=== PATIENT | female | born 1980 ===

== ENCOUNTER 2017-04-03 12:21 | Emergency (ER) | payer SELFPAY ==
[2017-04-03 12:21] VITALS: BMI 27.9
[2017-04-03 12:40] VITALS: BP 115/66; PULSE 71; RESP 18; TEMP 98; O2SAT 100
--- NOTE | 2017-04-03 13:31 | ED PDOC ---
HPI: General Adult Time Seen by Provider: 04/03/17 13:24 Chief Complaint (Nursing): Upper Extremity Problem/Injury Chief Complaint (Provider): neck pain, shoulder pain History Per: Patient Additional Complaint(s): 37-year-old right-hand dominant female presents to emergency department with right-sided neck pain and shoulder pain that radiates down her right arm ongoing for 3 days. Patient denies any injury or trauma. Patient has a at home and is currently . Patient took Motrin the other day which did help the pain. She rates current pain as 6 out of 10. No associated chest pain or shortness of breath. Past Medical History Reviewed: Historical Data, Nursing Documentation, Vital Signs Vital Signs: Last Vital Signs Temp 98 F 04/03/17 12:37 Pulse 71 04/03/17 12:37 Resp 18 04/03/17 12:37 BP 115/66 04/03/17 12:37 Pulse Ox 100 04/03/17 14:32 - Medical History PMH: No Chronic Diseases - Surgical History Surgical History: (x 3) - Family History Family History: States: No Known Family Hx - Living Arrangements Living Arrangements: With Family - Social History Current smoker - smoking cessation education provided: No Alcohol: None Drugs: Denies - Immunization History Hx Tetanus Toxoid Vaccination: Yes - Home Medications Home Medications: Ambulatory Orders Medication Instructions Recorded Vit No.126/Iron/Folic 1 tab PO DAILY 10/21/15 [Classic Tablet] Ibuprofen [Motrin] 600 mg PO Q6 PRN #15 tab 04/03/17 - Allergies Allergies/Adverse Reactions: Allergies Allergy/AdvReac Type Severity Reaction Status Date / Time No Known Allergies Allergy Verified 10/21/15 16:45 Review of Systems ROS Statement: Except As Marked, All Systems Reviewed And Found Negative Constitutional: Negative for: Fever Cardiovascular: Negative for: Chest Pain Respiratory: Negative for: Shortness of Breath Musculoskeletal: Positive for: Other (Neck pain, right arm pain 3 days, no trauma) Physical Exam - Reviewed Nursing Documentation Reviewed: Yes Vital Signs Reviewed: Yes - Physical Exam Appears: Positive for: Well, Non-toxic, No Acute Distress Skin: Negative for: Rash Eye Exam: Positive for: Normal appearance Neck: Positive for: Pain On Movement Of Neck (Tenderness to right paraspinal region of cervical spine extending to right trapezius muscle, mild tenderness along midline with no step-off) Cardiovascular/Chest: Positive for: Regular Rate, Rhythm Respiratory: Positive for: Normal Breath Sounds Extremity: Positive for: Other (Diffuse tenderness anterior right shoulder with full range of motion, 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 Patient feels better after medications are administered. Motrin prescription provided. Patient was advised to rest the affected area and was referred to orthopedist on-call for follow-up. Disposition - Clinical Impression Clinical Impression: Neck sprain, Shoulder strain - Patient ED Disposition Is Patient to be Admitted: No Counseled Patient/Family Regarding: Studies Performed, Diagnosis, Need For Followup, Rx Given - Disposition Referrals: Maryellen Retana MD [Staff Provider] - Disposition: Routine/Home Disposition Time: 14:56 Condition: STABLE Additional Instructions: Rest affected area as much as possible. Take prescription as directed as needed for pain. Follow-up with primary doctor or orthopedist for any persistent symptoms. Prescriptions: Ibuprofen [Motrin] 600 mg PO Q6 PRN #15 tab PRN Reason: Pain, Moderate (4-7) Instructions: Cervical Strain (DC), Shoulder Sprain (ED) Forms: [facility] (Chadian)
--- NOTE | 2017-04-03 14:51 | RAD ---
PROCEDURE: Radiographs of the Right Shoulder HISTORY: pain COMPARISON: No prior. FINDINGS: BONES: No acute fracture. JOINTS: Glenohumeral and acromioclavicular joints preserved. No osteoarthritis. SOFT TISSUES: Normal. OTHER FINDINGS: None. IMPRESSION: Normal radiographs of the right shoulder.
--- NOTE | 2017-04-03 14:52 | RAD ---
PROCEDURE: Cervical Spine Radiographs. HISTORY: Pain. COMPARISON: None. FINDINGS: BONES: Alignment maintained. No fracture. Dens Intact. DISC SPACES: Normal. SOFT TISSUES: Normal. No prevertebral soft tissue swelling. OTHER FINDINGS: None. IMPRESSION: Normal cervical spine radiographs
== END 2017-04-03 15:13 | disposition home or self-care (01) ==
LOC: H.ER 12:21
DX: S13.9XXA Sprain of joints and ligaments of unspecified parts of neck, initial encounter (principal); S46.911A Strain of unspecified muscle, fascia and tendon at shoulder and upper arm level, right arm, initial encounter; Y92.89 Other specified places as the place of occurrence of the external cause

== ENCOUNTER 2017-08-23 21:35 | Emergency (ER) | payer SELFPAY ==
[2017-08-23 21:35] VITALS: BMI 27.9
[2017-08-23 21:48] VITALS: RESP 14; TEMP 98.3; O2SAT 99
[2017-08-23 23:06] LABS: BASO # 0.1 K/uL (0.0-0.2); BASO % 0.8 % (0.0-2.0); EOS # 0.2 K/uL (0.0-0.7); EOS % 2.3 % (0.0-4.0); LYMPH # 2.4 K/uL (1.0-4.3); LYMPH % 34.4 % (20.0-40.0); MEAN CELL VOLUME 89.3 fl (81.0-99.0); MEAN CORPUSCULAR HEMOGLOBIN 29.7 pg (27.0-31.0); MEAN CORPUSCULAR HGB CONC 33.2 g/dL (33.0-37.0); MEAN PLATELET VOLUME 9.2 fl (7.2-11.7); MONO # 0.6 K/uL (0.0-0.8); MONO % 9.2 % (0.0-10.0); NEUT # 3.7 K/uL (1.8-7.0); NEUT % 53.3 % (50.0-75.0); RBC 4.38 Mil/uL (3.80-5.20); RED CELL DISTRIBUTION WIDTH 13.5 % (11.5-14.5)
[2017-08-23 23:14] LABS: ALB/GLOB RATIO 1.2 (1.0-2.1); ALBUMIN 3.8 g/dL (3.5-5.0); ALT/SGPT 22 U/L (9-52); AST/SGOT 22 U/L (14-36); BLOOD UREA NITROGEN 13 mg/dl (7-17); CALCIUM 8.7 mg/dL (8.4-10.2); GFR AFRICAN-AMERICAN > 60; GFR NON-AFRICAN AMERICAN > 60
[2017-08-23] MEDS ORDERED: Iohexol 300 100 ML IJ ONE (23:46)
[2017-08-23] MEDS ORDERED: Sodium Chloride 0.9% 50 ML IV ONE (23:46)
--- NOTE | 2017-08-24 00:06 | ED PDOC ---
HPI: Abdomen Time Seen by Provider: 08/23/17 21:53 Chief Complaint (Nursing): Abdominal Pain Chief Complaint (Provider): LLQ pain History Per: Patient History/Exam Limitations: no limitations Onset/Duration Of Symptoms: Days (x4) Current Symptoms Are (Timing): Still Present Additional Complaint(s): 37 year old female presents to the emergency department complaining of constant , non radiating left lower quadrant pain worsening since its onset four days ago. She states it feels worse when she walks, but has not taken any pain medications. Patient denies nausea, vomiting, diarrhea, constipation, urinary symptoms, vaginal bleeding / discharge, fever, chills, and appetite changes. PMD: Linda Nice Past Medical History Reviewed: Historical Data, Nursing Documentation, Vital Signs Vital Signs: Last Vital Signs Temp 98.3 F 08/23/17 21:45 Pulse 73 08/24/17 05:39 Resp 14 08/23/17 21:45 BP 100/58 L 08/24/17 05:39 Pulse Ox 99 08/24/17 05:33 - Medical History PMH: No Chronic Diseases - Surgical History Surgical History: (x 3) - Family History Family History: States: No Known Family Hx - Social History Current smoker - smoking cessation education provided: No Alcohol: None Drugs: Denies - Immunization History Hx Tetanus Toxoid Vaccination: Yes - Home Medications Home Medications: Ambulatory Orders Medication Instructions Recorded Vit No.126/Iron/Folic 1 tab PO DAILY 10/21/15 [Classic Tablet] Ibuprofen [Motrin] 600 mg PO Q6 PRN #15 tab 04/03/17 - Allergies Allergies/Adverse Reactions: Allergies Allergy/AdvReac Type Severity Reaction Status Date / Time No Known Allergies Allergy Verified 10/21/15 16:45 Review of Systems ROS Statement: Except As Marked, All Systems Reviewed And Found Negative Constitutional: Negative for: Fever, Chills Gastrointestinal: Positive for: Abdominal Pain (LLQ, constant, non radiating, worsening since onset). Negative for: Nausea, Vomiting, Diarrhea, Constipation , Other (appetite changes) Genitourinary Female: Negative for: Dysuria, Frequency, Incontinence, Vaginal Discharge, Vaginal Bleeding Physical Exam - Reviewed Nursing Documentation Reviewed: Yes Vital Signs Reviewed: Yes - Physical Exam Appears: Positive for: Non-toxic, In Acute Distress (mild painful) Head Exam: Positive for: ATRAUMATIC, NORMOCEPHALIC Skin: Positive for: Warm, Dry Eye Exam: Positive for: EOMI, PERRL ENT: Negative for: Pharyngeal Erythema, Tonsillar Exudate Neck: Positive for: Painless ROM, Supple Cardiovascular/Chest: Positive for: Regular Rate, Rhythm, Chest Non Tender. Negative for: Murmur Respiratory: Positive for: Normal Breath Sounds. Negative for: Respiratory Distress Gastrointestinal/Abdominal: Positive for: Tenderness (LLQ to palpation at level of umbilicus). Negative for: Mass, Guarding, Rebound, Other (mcburney's point tenderness, krishna's sign) Back: Positive for: Normal Inspection. Negative for: L CVA Tenderness, R CVA Tenderness, Decreased ROM Extremity: Positive for: Normal ROM. Negative for: Deformity Lymphatic: Negative for: Adenopathy Neurologic/Psych: Positive for: Alert. Negative for: Motor/Sensory Deficits - Laboratory Results Result Diagrams: 08/23/17 22:59 08/23/17 22:59 - ECG O2 Sat by Pulse Oximetry: 99 (RA) Pulse Ox Interpretation: Normal Medical Decision Making Medical Decision Making: Initial Impression: left lower quadrant pain Ddx includes but is not limited to: colitis, diverticulitis, enteritis, ovarian cyst Time: 22:27 Initial Plan: --CT Abd / Pelvis IV Contrast --CMP --Urine --Urine dipstick --CBC with differential Scribe Attestation: Documented by Isabel Covarrubias, acting as a scribe for Michelle Acosta MD. Provider Scribe Attestation: All medical entries made by the Scribe were at my direction and personally dictated by me. I have reviewed the chart and agree that the record accurately reflects my personal performance of the history, physical exam, medical decision making, and the department course for this patient. I have also personally directed, reviewed, and agree with the discharge instructions and disposition. Disposition - Clinical Impression Clinical Impression: Abdominal pain - Disposition Disposition: Transfer of Care Disposition Time: 00:00 Condition: STABLE Print Language: DJIBOUTIAN Patient Signed Over To: Amei Thrasher Y Handoff Comments: Pending ER workup, reassessment and final ER disposition
--- NOTE | 2017-08-24 00:44 | ED PDOC ---
- Laboratory Results Result Diagrams: 08/23/17 22:59 08/23/17 22:59 - ECG O2 Sat by Pulse Oximetry: 99 (RA) Medical Decision Making Medical Decision Makin:00 Patient care endorsed from Dr. Acosta to Dr. Thrasher pending CT results. 00:32 CT Abd Pelvis with IV contrast FINDINGS: LUNG BASES: No significant abnormality seen. ABDOMEN: LIVER: No acute abnormality of the liver identified. GALLBLADDER AND BILE DUCTS: Common bile duct appears mildly dilated, measuring 8 mm in diameter proximally. No common bile duct stones are visualized. The distal common bile duct appears nondilated. No CT evidence of acute cholecystitis. No radioopaque gallstones are seen. PANCREAS: No CT evidence of acute pancreatitis. SPLEEN: No acute abnormality of the spleen identified. ADRENALS: No acute abnormality of the adrenal glands identified. KIDNEYS AND URETERS: No acute abnormality of the kidneys identified. No evidence of significant hydrouereteronephrosis. STOMACH AND BOWEL: No acute abnormality of the stomach, small bowel or colon identified. No evidence of bowel obstruction. PELVIS: APPENDIX: Appendix is seen, and is within normal limits in appearance. BLADDER: No acute abnormality of the bladder identified. REPRODUCTIVE: Left ovarian/adnexal cystic lesion. This measures 5 x 4 x 4.5 cm maximally, and has a density of 20-25 Hounsfield units, mildly higher than expected for a simple cyst. Followup pelvic ultrasound is recommended for better characterization of this lesion, not necessarily on an emergent basis. Uterus is retroverted in position. No evidence of large left adnexal masses. ABDOMEN and PELVIS: INTRAPERITONEAL SPACE: Tiny amount of free fluid in the cul-de-sac. This is most likely physiologic in nature. BONES/JOINTS: No acute fractures or other acute bony abnormality noted. SOFT TISSUES: Small umbilical hernia, containing only fat. VASCULATURE: No evidence of abdominal aortic aneurysm. No evidence of periaortic hemorrhage. LYMPH NODES: No evidence of diffuse lymphadenopathy. IMPRESSION: - No evidence of bowel obstruction or significant acute inflammatory process. - 5 x 4.5 cm left ovarian/adnexal cystic lesion, for which followup ultrasound is recommended. See above. - Mild dilatation of the proximal common bile duct, of uncertain clinical significance. Recommend correlation with LFTs for laboratory evidence of biliary obstruction, and further workup as indicated, such as with right upper quadrant ultrasound. - See above for remaining findings 02:03 Transvag US ordered to r/o torsion. 05:09 Transvag US FINDINGS: Uterus/cervix: The uterus is retroverted. The uterus measures 8.3 x 4.0 x 5.7 CM. Endometrium measures 4.3 mm. No myometrial mass. Right ovary: The right ovary measures 2.4 x 1.5 x 1.4 CM demonstrating small follicular changes. Normal blood flow. Left ovary: The left ovary measures 6.8 x 4.6 x 4.9 CM demonstrating a large simple appearing cyst, which measures 4.3 x 5.6 x 3.7 CM. Normal blood flow. Free fluid: No free fluid. IMPRESSION: Left ovarian large simple appearing cyst, which measures 4.3 x 5.6 x 3.7 CM, ACR White Paper guidelines (Jesusita, et. al. Radiology 2010; 256(3):943-954) suggest that this cyst is almost certainly benign. Yearly pelvic ultrasound follow-up recommended. 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 Scribe Attestation: Documented by Isabel Covarrubias, acting as a scribe for Amie Thrasher MD. Provider Scribe Attestation: All medical entries made by the Scribe were at my direction and personally dictated by me. I have reviewed the chart and agree that the record accurately reflects my personal performance of the history, physical exam, medical decision making, and the department course for this patient. I have also personally directed, reviewed, and agree with the discharge instructions and disposition. Disposition Counseled Patient/Family Regarding: Studies Performed, Diagnosis, Need For Followup - Clinical Impression Clinical Impression: Abdominal pain - POA Present On Arrival: None - Disposition Disposition: Routine/Home Disposition Time: 05:30 Condition: STABLE Print Language: KAZAKH
[2017-08-24 05:40] VITALS: BP 100/58; PULSE 73
--- NOTE | 2017-08-24 11:13 | CT ---
PROCEDURE: CT Abdomen and Pelvis with contrast HISTORY: LLQ pain COMPARISON: None. TECHNIQUE: CT scan of the abdomen and pelvis was performed after administration of intravenous contrast. Oral contrast was not administered. Coronal and sagittal reformatted images were obtained. Contrast dose: 90 mL Omnipaque 300 Radiation dose: Total exam DLP = 283.65 mGy-cm. This CT exam was performed using one or more of the following dose reduction techniques: Automated exposure control, adjustment of the mA and/or kV according to patient size, and/or use of iterative reconstruction technique. FINDINGS: LOWER THORAX: The visualized lungs are clear. LIVER: Mild hepatomegaly and diffuse fatty infiltration in the. No gross lesion or ductal dilatation. GALLBLADDER AND BILE DUCTS: The gallbladder is contracted. There is mild dilatation of the proximal common bile duct. The distal common bile duct is normal in caliber. PANCREAS: Normal in size with homogeneous enhancement. No gross lesion or ductal dilatation. SPLEEN: Normal in size and appearance. ADRENALS: No discrete nodule. KIDNEYS AND URETERS: Normal in size with homogeneous enhancement. No hydronephrosis. No solid mass. VASCULATURE: No aortic aneurysm. BOWEL: Small bowel loops are normal in caliber. The colon is unremarkable. No obstruction. No gross mural thickening. APPENDIX: Normal appendix. PERITONEUM: No free fluid. No free air. LYMPH NODES: No enlarged lymph nodes. BLADDER: Grossly normal in appearance. REPRODUCTIVE: The uterus is normal in size. There is a 6.6 x 4.4 cm low-attenuation mass in the left adnexa. BONES: No acute fracture. Within normal limits for the patient's age with OTHER FINDINGS: None. IMPRESSION: 6.6 x 4.4 cm cystic mass in the left adnexa, the differential considerations include complicated cyst, cystadenoma and cystadenocarcinoma. Clinical and ultrasound follow-up is recommended. Mild dilatation of the proximal common bile duct without CT evidence for choledocholithiasis. Please correlate with right upper quadrant ultrasound and liver function tests. A preliminary report was provided by [facility].
--- NOTE | 2017-08-24 12:24 | US ---
HISTORY: Abdominal pain, left adnexal pain assess for torsion. LMP August 12, 2017. Regular cycles. COMPARISON: August 23, 2017. CT abdomen and pelvis. Summary of findings on the comparison examination: 4.4 x 6.6 cm cystic mass left adnexa. TECHNIQUE: Transvaginal only. Real -time technique with 2D, duplex and color Doppler FINDINGS: UTERUS: Measures cm. Normal in size and appearance. No fibroid or other mass lesion seen. ENDOMETRIUM: Measures mm in diameter. Unremarkable. CERVIX: No cervical abnormality identified. RIGHT OVARY: Measures 1.5 x 1.4 x 2.4 cm. No solid mass. Normal flow. Multiple subcentimeter follicles. LEFT OVARY: Measures 4.6 x 4.9 x 6.8 cm. No solid mass. Normal flow. Confirmation of simple cyst left adnexa 4.3 x 6.8 x 4.6 cm. Additional subcentimeter follicles identified. FREE FLUID: No significant free fluid noted. OTHER FINDINGS: None. IMPRESSION: Simple cyst left adnexa. Additional benign and/or incidental findings described above. Concordant results (preliminary interpretation) provided by [facility]. Procedure Completed: 03:26 Preliminary ([facility]) Report: Dictated and Authenticated: 05:09 Final Interpretation: 12:22 August 24, 2017.
== END 2017-08-24 05:40 | disposition home or self-care (01) ==
LOC: H.ER 21:35
DX: N83.291 Other ovarian cyst, right side (principal); R10.32 Left lower quadrant pain
CPT/HCPCS: 74177; 76830; 80053; 81025; 85025; 99284; Q9967

== ENCOUNTER 2018-03-12 15:50 | Emergency (ER) | payer SELFPAY ==
[2018-03-12 15:50] VITALS: BMI 27.9
[2018-03-12 16:00] VITALS: BP 109/69; PULSE 90; RESP 18; TEMP 97.5; O2SAT 98
--- NOTE | 2018-03-12 17:06 | ED PDOC ---
Upper Extremity Pain/Injury Time Seen by Provider: 03/12/18 16:28 Chief Complaint (Nursing): Upper Extremity Problem/Injury Chief Complaint (Provider): Right wrist pain History Per: Patient History/Exam Limitations: no limitations Onset/Duration Of Symptoms: Days (03/05/18) Current Symptoms Are (Timing): Still Present Quality: "Pain" Additional Complaint(s): 38 year old female presents to the ED for an evaluation of wrist pain onset 03/05/18. Patient states she was at work and moving boxes when boxes fell, she tried to stretch out her hand to keep them from falling. Some boxes fell to the side of her right arm. Patient was seen at [place] and discharged home with Flexeril and Motrin without any x-ray. She also reports of additional pain to the right side of her neck and back. Otherwise she denies fever, chills, numbness or tingling. PMD: unknown provider Past Medical History Reviewed: Historical Data, Nursing Documentation, Vital Signs Vital Signs: Last Vital Signs Temp 97.5 F L 03/12/18 15:56 Pulse 90 03/12/18 15:56 Resp 18 03/12/18 15:56 BP 109/69 03/12/18 15:56 Pulse Ox 98 03/12/18 15:56 - Medical History PMH: No Chronic Diseases - Surgical History Surgical History: (x 3) - Family History Family History: States: Unknown Family Hx - Immunization History Hx Tetanus Toxoid Vaccination: Yes - Home Medications Home Medications: Ambulatory Orders Medication Instructions Recorded Vit No.126/Iron/Folic 1 tab PO DAILY 10/21/15 [Classic Tablet] Ibuprofen [Motrin] 600 mg PO Q6 PRN #15 tab 04/03/17 Naproxen 375 mg PO Q8 PRN #21 tablet 03/12/18 diaZEpam [Valium] 5 mg PO Q8 PRN #5 tab 03/12/18 - Allergies Allergies/Adverse Reactions: Allergies Allergy/AdvReac Type Severity Reaction Status Date / Time No Known Allergies Allergy Verified 03/12/18 16:25 Review of Systems ROS Statement: Except As Marked, All Systems Reviewed And Found Negative Constitutional: Negative for: Fever, Chills Musculoskeletal: Positive for: Neck Pain, Back Pain, Other (right wrist pain) Neurological: Negative for: Weakness, Numbness Physical Exam - Reviewed Nursing Documentation Reviewed: Yes Vital Signs Reviewed: Yes - Physical Exam Appears: Positive for: Non-toxic, No Acute Distress Head Exam: Positive for: ATRAUMATIC, NORMAL INSPECTION, NORMOCEPHALIC Skin: Positive for: Normal Color, Warm, Dry. Negative for: Rash Eye Exam: Positive for: Normal appearance Neck: Negative for: Normal (rigth neck pain) Back: Negative for: Normal Inspection (right paralumbar tenderness) Extremity: Positive for: Tenderness (right wrist). Negative for: Deformity, Sw elling Neurologic/Psych: Positive for: Alert, Oriented (x3). Negative for: Motor/Sensory Deficits - ECG O2 Sat by Pulse Oximetry: 98 (RA) Pulse Ox Interpretation: Normal - Radiology X-Ray: Interpreted by Me, Viewed By Me X-Ray Interpretation: No Acute Disease Medical Decision Making Medical Decision Making: Time: 1631 Initial impression: right wrist pain Initial plan: Toradol 30mg Valium 5mg Wrist, Right 3 Views [rad] Reevaluation ------- Scribe Attestation: Documented by Kofi Finley, acting as a scribe for Dwayne Vaughn PA-C. Provider Scribe Attestation: All medical record entries made by the Scribe were at my direction and personally dictated by me. I have reviewed the chart and agree that the record accurately reflects my personal performance of the history, physical exam, medical decision making, and the department course for this patient. I have also personally directed, reviewed, and agree with the discharge instructions and disposition. Disposition - Clinical Impression Clinical Impression: Acute strain of neck muscle, Low back strain - Patient ED Disposition Is Patient to be Admitted: No - Disposition Disposition: Routine/Home Disposition Time: 16:50 Condition: FAIR Prescriptions: diaZEpam [Valium] 5 mg PO Q8 PRN #5 tab PRN Reason: Muscle Spasm Naproxen 375 mg PO Q8 PRN #21 tablet PRN Reason: Pain, Moderate (4-7) Instructions: Muscle Strain
--- NOTE | 2018-03-12 17:45 | RAD ---
Date of service: 03/12/2018 PROCEDURE: Right Wrist Radiographs. HISTORY: WRIST PAIN COMPARISON: None. FINDINGS: BONES: No definitive evidence of acute displaced fracture nor dislocation. The osseous structures appear intact. JOINTS: Joint spaces preserved.. No dislocation. SOFT TISSUES: Normal. OTHER FINDINGS: None. IMPRESSION: No evidence of acute displaced fracture nor dislocation. If symptoms persist or occult fracture suspected clinically consider follow-up MRI if necessary.
== END 2018-03-12 19:38 | disposition home or self-care (01) ==
LOC: H.ER 15:50
DX: S39.012A Strain of muscle, fascia and tendon of lower back, initial encounter (principal); S16.1XXA Strain of muscle, fascia and tendon at neck level, initial encounter; W20.8XXA Other cause of strike by thrown, projected or falling object, initial encounter; Y99.0 Civilian activity done for income or pay
CPT/HCPCS: 73110; 96372; 99283; J1885

== ENCOUNTER 2018-08-08 10:28 | Observation (INO) | payer MEDICAID, SELFPAY ==
[2018-08-08 10:30] VITALS: BMI 25.1
--- NOTE | 2018-08-08 11:42 | CARD ---
APPROVED REPORT Date of service: 08/08/2018 EKG Measurement Heart [id number] <Conclusion> Normal sinus rhythm Normal ECG
--- NOTE | 2018-08-08 12:29 | CT ---
Date of service: 08/08/2018 PROCEDURE: CT HEAD WITHOUT CONTRAST. HISTORY: trauma COMPARISON: None available. TECHNIQUE: Axial computed tomography images were obtained through the head/brain without intravenous contrast. Radiation dose: Total exam DLP = 771.86 mGy-cm. This CT exam was performed using one or more of the following dose reduction techniques: Automated exposure control, adjustment of the mA and/or kV according to patient size, and/or use of iterative reconstruction technique. FINDINGS: HEMORRHAGE: No intracranial hemorrhage. BRAIN: No mass effect or edema. No atrophy or chronic microvascular ischemic changes. VENTRICLES: Unremarkable. No hydrocephalus. CALVARIUM: Unremarkable. PARANASAL SINUSES: Left maxillary sinus coastal thickening-concomitant underlying retention cyst and/or polyp here suspect. MASTOID AIR CELLS: Unremarkable as visualized. No inflammatory changes. OTHER FINDINGS: None. IMPRESSION: No intracranial hemorrhage or mass effect. Left maxillary sinus inflammatory changes as detailed above.
[2018-08-08 12:47] LABS: SQUAMOUS EPITHIAL 4 /hpf (0-5); URINE AMORPHOUS SEDIMENT MODERATE /ul (<OCC); URINE BACTERIA RARE (<OCC); URINE BILIRUBIN NEGATIVE (NEGATIVE); URINE BLOOD NEGATIVE (NEGATIVE); URINE CLARITY CLOUDY (Clear); URINE COLOR YELLOW (YELLOW); URINE GLUCOSE (UA) NEG (NEGATIVE); URINE LEUKOCYTE ESTERASE NEG Leu/uL (Negative); URINE PROTEIN NEGATIVE (NEGATIVE); URINE UROBILINOGEN 0.2-1.0 mg/dL (0.2-1.0)
[2018-08-08 12:54] LABS: BASO % 0.3 % (0.0-2.0); EOS # 0.2 K/uL (0.0-0.7); EOS % 2.4 % (0.0-4.0); LYMPH # 1.2 K/uL (1.0-4.3); LYMPH % 15.9 % (20.0-40.0); MEAN CELL VOLUME 90.2 fl (81.0-99.0); MEAN CORPUSCULAR HEMOGLOBIN 30.1 pg (27.0-31.0); MEAN CORPUSCULAR HGB CONC 33.3 g/dL (33.0-37.0); MEAN PLATELET VOLUME 8.7 fl (7.2-11.7); MONO # 0.4 K/uL (0.0-0.8); MONO % 5.3 % (0.0-10.0); NEUT # 5.5 K/uL (1.8-7.0); NEUT % 76.1 % (50.0-75.0); RBC 4.67 Mil/uL (3.80-5.20); RED CELL DISTRIBUTION WIDTH 13.6 % (11.5-14.5); WHITE BLOOD COUNT 7.3 K/uL (4.8-10.8)
--- NOTE | 2018-08-08 13:00 | ED PDOC ---
Syncope/Near Syncope/Dizziness Time Seen by Provider: 08/08/18 10:33 Chief Complaint (Nursing): Dizziness/Lightheaded History Per: Patient Additional Complaint(s): Pt. states she was running to the train station and as she was paying for her ticket she began to feel weak then fainted. Pt. states she was woken up by bystanders. Pt. states she woke up with an occipital headache. Further reports she had similar incident 20 years ago in [place] but did not seek medical a ttention until today. Denies N/V, chest pain, SOB, palpitations, anticoagulant use. Past Medical History Reviewed: Historical Data, Nursing Documentation, Vital Signs Vital Signs: Last Vital Signs Temp 98.2 F 08/08/18 10:30 Pulse 85 08/08/18 10:30 Resp 18 08/08/18 10:30 BP 114/70 08/08/18 10:30 Pulse Ox 98 08/08/18 10:31 Primary Care Provider: FAMILY PROVIDER,NO - Surgical History Surgical History: (x 3) - Family History Family History: States: No Known Family Hx - Immunization History Hx Tetanus Toxoid Vaccination: Yes - Home Medications Home Medications: Ambulatory Orders Medication Instructions Recorded Vit No.126/Iron/Folic 1 tab PO DAILY 10/21/15 [Classic Tablet] Ibuprofen [Motrin Tab] 600 mg PO Q6 PRN #15 tab 04/03/17 diaZEpam [Valium] 5 mg PO Q8 PRN #5 tab 03/12/18 - Allergies Allergies/Adverse Reactions: Allergies Allergy/AdvReac Type Severity Reaction Status Date / Time No Known Allergies Allergy Verified 08/08/18 10:37 Review of Systems ROS Statement: Except As Marked, All Systems Reviewed And Found Negative Neurological: Positive for: Altered Mental Status, Headache Physical Exam - Physical Exam Appears: Positive for: Well, Non-toxic, No Acute Distress Head Exam: Positive for: NORMAL INSPECTION, NORMOCEPHALIC Skin: Positive for: Normal Color, Warm. Negative for: Rash Eye Exam: Positive for: EOMI, Normal appearance, PERRL ENT: Positive for: Normal ENT Inspection, TM Is/Are (no hemotympanum b/l) Neck: Positive for: Normal, Painless ROM, Supple Cardiovascular/Chest: Positive for: Regular Rate, Rhythm, Chest Non Tender Respiratory: Positive for: Normal Breath Sounds. Negative for: Respiratory Distress Gastrointestinal/Abdominal: Positive for: Normal Exam, Soft. Negative for: Tenderness Back: Negative for: L CVA Tenderness, R CVA Tenderness, Vertebral Tenderness (no c-spine tenderness) Neurological/Psych: Positive for: Awake, Alert, Symmetric/Intact Strength, Oriented (x3) - Laboratory Results Result Diagrams: 08/08/18 12:47 08/08/18 12:47 - ECG ECG: Positive for: Interpreted By Me ECG Rhythm: Positive for: Sinus Rhythm. Negative for: ST/T Changes O2 Sat by Pulse Oximetry: 98 - Progress ED Course And Treament: Labs, CT head, CT cervical spine w/o contrast ordered. Case d/w Dr. Cárdenas who recommends tele observation. Case d/w Dr. Carmichael and arrangements for 23 hour tele obs. Disposition - Clinical Impression Clinical Impression: Syncope and collapse - Patient ED Disposition Is Patient to be Admitted: Yes - Disposition Disposition Time: 13:30 Condition: FAIR
--- NOTE | 2018-08-08 13:01 | RAD ---
AP date of service: 08/08/2018 HISTORY: clearance COMPARISON: Comparison made with chest 02/28/15 TECHNIQUE: 1 view obtained. FINDINGS: LUNGS: No active pulmonary disease. PLEURA: No significant pleural effusion identified, no pneumothorax apparent. CARDIOVASCULAR: No aortic atherosclerotic calcification present. Normal cardiac size. No pulmonary vascular congestion. OSSEOUS STRUCTURES: No significant abnormalities. VISUALIZED UPPER ABDOMEN: Normal. OTHER FINDINGS: None. IMPRESSION: No active disease.
--- NOTE | 2018-08-08 13:12 | CT ---
Date of service: 08/08/2018 PROCEDURE: CT Cervical Spine without contrast HISTORY: Trauma COMPARISON: No prior study available comparison. TECHNIQUE: Axial computed tomography images were obtained of the cervical spine without the use of intravenous contrast. Coronal and sagittal reformatted images were created and reviewed. Radiation dose: Total exam DLP = 211.03 mGy-cm. This CT exam was performed using one or more of the following dose reduction techniques: Automated exposure control, adjustment of the mA and/or kV according to patient size, and/or use of iterative reconstruction technique. FINDINGS: VERTEBRAE: No evidence of acute compression fractures nor retropulsed fragments. Vertebral bodies exhibit normal stature. Vertebral bodies and facets normally aligned. Discs/spinal canal/neural foramina Disc space heights are relatively maintained.. There is a small central and bilateral disc focal disc protrusion at the C4-C5 level which compresses the ventral surface of the thecal sac and may minimally indent the ventral surface of the spinal cord. The canal is minimally narrowed. Exit foramina adequate. No disc herniation or significant disc bulges seen at the remaining levels. Overall central bony canal and exit foramina appear adequate. PARASPINAL SOFT TISSUES: Paraspinal soft tissues unremarkable. OTHER FINDINGS: Small elliptical shaped septated collection of gas within the soft tissues anteromedial right lung apex. This probably represents atypical bleb formation. Note that the collection also abuts the right lateral wall of the esophagus however the esophagus appears intact.. The collection also abuts the posterior aspect right lobe of the thyroid gland. Endoscopy followup could be performed if clinically indicated. IMPRESSION: No acute fractures. Small elliptical shaped septated collection of gas within the soft tissues anteromedial right lung apex. This probably represents atypical bleb formation. Note that the collection also abuts the right lateral wall of the esophagus however the esophagus appears intact.. The collection also abuts the posterior right lobe of the thyroid gland. Endoscopy followup could be performed if clinically indicated given this patient's history of trauma.
[2018-08-08 13:13] LABS: ALB/GLOB RATIO 1.4 (1.0-2.1); ALBUMIN 4.3 g/dL (3.5-5.0); ALT/SGPT 16 U/L (9-52); AST/SGOT 23 U/L (14-36); BLOOD UREA NITROGEN 12 mg/dl (7-17); CALCIUM 9.1 mg/dL (8.4-10.2); GFR NON-AFRICAN AMERICAN > 60
--- NOTE | 2018-08-08 16:32 | CP.PCM.HP ---
<Koffi Hayes - Last Filed: 08/08/18 17:03> History of Present Illness - History of Present Illness History of Present Illness: 38 yo female with no pmh was brought to ER due to having episode of syncope while she was running to catch the train. Patient report that she ran 5 blocks and when she got to train station she start feeling dizzy, cold sweat, and then everything went black. Patient woke up while a person was holding her legs up, patient cant tell how much she was blacked out, or if she hit her hear, but does state that she woke up with a headache. Patient report having same episode when she was 16 year old, and few years ago. Otherwise patient have no complains. She denies any chest pain, sob, abd pain, diarrhea, constipation, dysuria or polyuria. Patient have no other complains. Patient report feeling good and want to go home. Allergy None PCP: Micha med: oral contraception PMH: None PSH None PFH: denies any heart, diabete condition Social Denies smoke, drink or drug use. Ed Course Vitals: 98 tmp, pulse 65, bp 104/69, Ox 99, RR 18 CBC CMP UA WNL EKG : NSR No acute fractures. X-ray negative for acute changes CT CHEST Small elliptical shaped septated collection of gas within the soft tissues anteromedial right lung apex. This probably represents atypical bleb formation. Note that the collection also abuts the right lateral wall of the esophagus however the esophagus appears intact.. The collection also abuts the posterior right lobe of the thyroid gland. Endoscopy followup could be performed if clinically indicated given this patient's history of trauma. No intracranial hemorrhage or mass effect. Left maxillary sinus inflammatory changes as detailed above. IMPRESSION: No intracranial hemorrhage or mass effect. Left maxillary sinus inflammatory changes as detailed above. Present on Admission - Present on Admission Any Indicators Present on Admission: No Review of Systems - Review of Systems All systems: reviewed and no additional remarkable complaints except Past Patient History - Past Social History Smoking Status: Never Smoked - PSYCHIATRIC Hx Substance Use: No - SURGICAL HISTORY Hx Surgeries: Yes Hx Section: Yes (x2) - ANESTHESIA Hx Anesthesia: Yes Hx Anesthesia Reactions: No Meds Allergies/Adverse Reactions: Allergies Allergy/AdvReac Type Severity Reaction Status Date / Time No Known Allergies Allergy Verified 08/08/18 10:37 Physical Exam - Constitutional Appears: Well, Non-toxic, No Acute Distress - Head Exam Head Exam: ATRAUMATIC, NORMAL INSPECTION, NORMOCEPHALIC - Eye Exam Eye Exam: EOMI, Normal appearance, PERRL Pupil Exam: NORMAL ACCOMODATION, PERRL - ENT Exam ENT Exam: Mucous Membranes Moist, Normal Exam - Neck Exam Neck exam: Positive for: Normal Inspection - Respiratory Exam Respiratory Exam: Clear to Auscultation Bilateral, NORMAL BREATHING PATTERN - Cardiovascular Exam Cardiovascular Exam: REGULAR RHYTHM, +S1, +S2, Systolic Murmur - GI/Abdominal Exam GI & Abdominal Exam: Normal Bowel Sounds, Soft - Extremities Exam Extremities exam: Positive for: normal inspection - Back Exam Back exam: NORMAL INSPECTION - Neurological Exam Neurological exam: Alert, CN II-XII Intact, Oriented x3, Reflexes Normal - Psychiatric Exam Psychiatric exam: Normal Affect, Normal Mood Results - Vital Signs Recent Vital Signs: Last Vital Signs Temp 98.2 F 08/08/18 15:48 Pulse 74 08/08/18 15:48 Resp 18 08/08/18 15:48 BP 109/67 08/08/18 15:48 Pulse Ox 98 08/08/18 15:48 - Labs Result Diagrams: 08/08/18 12:47 08/08/18 12:47 Labs: Laboratory Results - last 24 hr 08/08/18 08/08/18 08/08/18 12:35 12:47 12:47 WBC 7.3 RBC 4.67 Hgb 14.0 Hct 42.1 MCV 90.2 MCH 30.1 MCHC 33.3 RDW 13.6 Plt Count 230 MPV 8.7 Neut % (Auto) 76.1 H Lymph % (Auto) 15.9 L Perry % (Auto) 5.3 Eos % (Auto) 2.4 Baso % (Auto) 0.3 Neut # (Auto) 5.5 Lymph # (Auto) 1.2 Perry # (Auto) 0.4 Eos # (Auto) 0.2 Baso # (Auto) 0.0 Sodium 139 Potassium 4.0 Chloride 103 Carbon Dioxide 27 Anion Gap 13 BUN 12 Creatinine 0.6 L Est GFR ( Amer) > 60 Est GFR (Non-Af Amer) > 60 Random Glucose 118 H Calcium 9.1 Total Bilirubin 0.2 AST 23 ALT 16 Alkaline Phosphatase 45 Troponin I < 0.0120 Total Protein 7.4 Albumin 4.3 Globulin 3.2 Albumin/Globulin Ratio 1.4 Urine Color Yellow Urine Clarity Cloudy Urine pH 7.0 Ur Specific [place] 1.016 Urine Protein Negative Urine Glucose (UA) Neg Urine Ketones Negative Urine Blood Negative Urine Nitrate Negative Urine Bilirubin Negative Urine Urobilinogen 0.2-1.0 Ur Leukocyte Esterase Neg Urine RBC (Auto) 1 Urine Microscopic WBC 1 Ur Squamous Epith Cells 4 Amorphous Sediment Moderate H Urine Bacteria Rare Assessment & Plan - Assessment and Plan (Free Text) Assessment: 38 yo female with no PMH brought to ER due to episode of syncope with normal CT/ ekg finding. Patient admitted to [facility] for observation. X-ray negative for acute changes CT CHEST Small elliptical shaped septated collection of gas within the soft tissues anteromedial right lung apex. This probably represents atypical bleb formation. Note that the collection also abuts the right lateral wall of the esophagus however the esophagus appears intact.. The collection also abuts the posterior right lobe of the thyroid gland. Endoscopy followup could be performed if clinically indicated given this patient's history of trauma. No intracranial hemorrhage or mass effect. Left maxillary sinus inflammatory changes as detailed above. IMPRESSION: No intracranial hemorrhage or mass effect. Left maxillary sinus inflammatory changes as detailed above. Episode of syncope with exertion possible Vagal vagus vs cardiomypathy, vs hypoglycemia X-ray negative Ct No acute changes EKG normal sinus rhythm VItals WNl CBC/CMP normal Hx of 3 same episode in the past + for systolic murmur Hemoglobin A1C 5.3 last year. Will do Echo CN II-XII normal monitor for any acute changes Headache Acetaminophen PRN DVT prophylaxis Lovenox SC <Carmichael,Nils D - Last Filed: 08/08/18 17:10> Results - Vital Signs Recent Vital Signs: Last Vital Signs Temp 98.0 F 08/08/18 16:19 Pulse 65 08/08/18 16:19 Resp 18 08/08/18 16:19 BP 104/69 08/08/18 16:19 Pulse Ox 99 08/08/18 16:19 - Labs Result Diagrams: 08/08/18 12:47 08/08/18 12:47 Labs: Laboratory Results - last 24 hr 08/08/18 08/08/18 08/08/18 12:35 12:47 12:47 WBC 7.3 RBC 4.67 Hgb 14.0 Hct 42.1 MCV 90.2 MCH 30.1 MCHC 33.3 RDW 13.6 Plt Count 230 MPV 8.7 Neut % (Auto) 76.1 H Lymph % (Auto) 15.9 L Perry % (Auto) 5.3 Eos % (Auto) 2.4 Baso % (Auto) 0.3 Neut # (Auto) 5.5 Lymph # (Auto) 1.2 Perry # (Auto) 0.4 Eos # (Auto) 0.2 Baso # (Auto) 0.0 Sodium 139 Potassium 4.0 Chloride 103 Carbon Dioxide 27 Anion Gap 13 BUN 12 Creatinine 0.6 L Est GFR ( Amer) > 60 Est GFR (Non-Af Amer) > 60 Random Glucose 118 H Calcium 9.1 Total Bilirubin 0.2 AST 23 ALT 16 Alkaline Phosphatase 45 Troponin I < 0.0120 Total Protein 7.4 Albumin 4.3 Globulin 3.2 Albumin/Globulin Ratio 1.4 Urine Color Yellow Urine Clarity Cloudy Urine pH 7.0 Ur Specific [place] 1.016 Urine Protein Negative Urine Glucose (UA) Neg Urine Ketones Negative Urine Blood Negative Urine Nitrate Negative Urine Bilirubin Negative Urine Urobilinogen 0.2-1.0 Ur Leukocyte Esterase Neg Urine RBC (Auto) 1 Urine Microscopic WBC 1 Ur Squamous Epith Cells 4 Amorphous Sediment Moderate H Urine Bacteria Rare Attending/Attestation - Attestation I have personally seen and examined this patient.: Yes I have fully participated in the care of the patient.: Yes I have reviewed all pertinent clinical information: Yes Notes (Text): 08/08/18 17:10 Patient seen and examined with resident. Case discussed and agreed with assessment and plan of management.
--- NOTE | 2018-08-09 04:32 | CARD ---
APPROVED REPORT Date of service: 08/08/2018 EXAM: Two-dimensional and M-mode echocardiogram with Doppler and color Doppler. Other Information Quality : GoodRhythm : NSR INDICATION Murmur Syncope 2D DIMENSIONS IVSd0.87 (0.7-1.1cm)LVDd4.06 (3.9-5.9cm) LVOT Diameter1.87 (1.8-2.4cm)PWd0.85 (0.7-1.1cm) IVSs1.39 (0.8-1.2cm)LVDs2.32 (2.5-4.0cm) FS (%) 42.9 %PWs1.31 (0.8-1.2cm) M-Mode DIMENSIONS Left Atrium (MM)3.20 (2.5-4.0cm)IVSd0.91 (0.7-1.1cm) Aortic Root1.96 (2.2-3.7cm)LVDd3.73 (4.0-5.6cm) Aortic Cusp Exc.1.53 (1.5-2.0cm)PWd0.96 (0.7-1.1cm) IVSs1.29 cmFS (%) 41 % LVDs2.20 (2.0-3.8cm)PWs1.36 cm Aortic Valve AoV Peak Ftdiipsf939.2cm/sAoV VTI23.9cmAO Peak GR.8mmHg LVOT Peak Japwiytw574.6cm/sLVOT VTI24.04cmAO Mean GR.4mmHg VENTURA (VMAX)1.95dm0TCV (VTI)1.94cm2 Mitral Valve MV E Qkityjxn07.7cm/sMV DECEL [id number] A Hbmymitt76.0cm/s MV [id number]/A ratio1.0MVA (PHT)2.58cm2 TDI Lateral E' Peak V14.26cm/sMedial E' Peak V8.88cm/sE/Lateral E'4.9 E/Medial E'7.8 Tricuspid Valve TR Peak Mqnkarkz580xi/sRAP [id number] Peak Gr.22mmHg [id number] LEFT VENTRICLE The left ventricle is normal size. There is normal left ventricular wall thickness. The left ventricular systolic function is normal. The estimated ejection fraction is 60-65% No regional wall motion abnormalities noted.. The left ventricular diastolic function is normal. No left ventricle thrombus noted on this study. There is no ventricular septal defect visualized. There is no left ventricular aneurysm. There is no mass noted in the left ventricle. RIGHT VENTRICLE The right ventricle is normal size. There is normal right ventricular wall thickness. The right ventricular systolic function is normal. ATRIA The left atrium size is normal. The right atrium size is normal. The interatrial septum is intact with no evidence for an atrial septal defect. AORTIC VALVE The aortic valve is normal in structure. No aortic regurgitation is present. There is no aortic valvular stenosis. There is no aortic valvular vegetation. MITRAL VALVE The mitral valve is normal in structure. There is no evidence of mitral valve prolapse. There is no mitral valve stenosis. There is mild mitral valve regurgitation noted. TRICUSPID VALVE The tricuspid valve is normal in structure. There is mild tricuspid valve regurgitation noted. RVSP is calculated at 30 mm Hg. There is no tricuspid valve prolapse or vegetation. There is no tricuspid valve stenosis. PULMONIC VALVE The pulmonary valve is normal in structure. There is no pulmonic valvular regurgitation. There is no pulmonic valvular stenosis. GREAT VESSELS The aortic root is normal in size. The ascending aorta is normal in size. The pulmonary artery is normal. The IVC is normal in size and collapses >50% with inspiration. PERICARDIAL EFFUSION There is no pericardial effusion. There is no pleural effusion. <Conclusion> The estimated ejection fraction is 60-65% The left ventricular diastolic function is normal. The left atrium size is normal. There is mild mitral valve regurgitation noted. There is mild tricuspid valve regurgitation noted. RVSP is calculated at 30 mm Hg.
[2018-08-09 05:21] VITALS: PULSE 65
[2018-08-09 08:19] VITALS: BP 101/59; RESP 20; TEMP 98.1
[2018-08-09] MEDS ORDERED: Pneumococcal 23-Valent Vaccine IM ONE (09:00)
[2018-08-09] MEDS ORDERED: Enoxaparin 40 mg Syringe SC SCH (09:00)
--- NOTE | 2018-08-09 10:14 | CP.PCM.DIS ---
<Koffi Hayes - Last Filed: 08/09/18 12:28> Provider - Provider Date of Admission: 08/08/18 13:38 Attending physician: Nils Carmichael MD Time Spent in preparation of Discharge (in minutes): 36 Diagnosis - Discharge Diagnosis (1) Vaso vagal episode Status: Acute Hospital Course - Lab Results Lab Results: Most Recent Lab Values WBC 7.3 K/uL (4.8-10.8) 08/08/18 12:47 RBC 4.67 Mil/uL (3.80-5.20) 08/08/18 12:47 Hgb 14.0 g/dL (12.0-16.0) 08/08/18 12:47 Hct 42.1 % (34.0-47.0) 08/08/18 12:47 MCV 90.2 fl (81.0-99.0) 08/08/18 12:47 MCH 30.1 pg (27.0-31.0) 08/08/18 12:47 MCHC 33.3 g/dL (33.0-37.0) 08/08/18 12:47 RDW 13.6 % (11.5-14.5) 08/08/18 12:47 Plt Count 230 K/uL (130-400) 08/08/18 12:47 MPV 8.7 fl (7.2-11.7) 08/08/18 12:47 Neut % (Auto) 76.1 % (50.0-75.0) H 08/08/18 12:47 Lymph % (Auto) 15.9 % (20.0-40.0) L 08/08/18 12:47 [place] % (Auto) 5.3 % (0.0-10.0) 08/08/18 12:47 Eos % (Auto) 2.4 % (0.0-4.0) 08/08/18 12:47 Baso % (Auto) 0.3 % (0.0-2.0) 08/08/18 12:47 Neut # (Auto) 5.5 K/uL (1.8-7.0) 08/08/18 12:47 Lymph # (Auto) 1.2 K/uL (1.0-4.3) 08/08/18 12:47 [place] # (Auto) 0.4 K/uL (0.0-0.8) 08/08/18 12:47 Eos # (Auto) 0.2 K/uL (0.0-0.7) 08/08/18 12:47 Baso # (Auto) 0.0 K/uL (0.0-0.2) 08/08/18 12:47 Sodium 139 mmol/l (132-148) 08/08/18 12:47 Potassium 4.0 MMOL/L (3.6-5.0) 08/08/18 12:47 Chloride 103 mmol/L (98-107) 08/08/18 12:47 Carbon Dioxide 27 mmol/L (22-30) 08/08/18 12:47 Anion Gap 13 (10-20) 08/08/18 12:47 BUN 12 mg/dl (7-17) 08/08/18 12:47 Creatinine 0.6 mg/dl (0.7-1.2) L 08/08/18 12:47 Est GFR ( Amer) > 60 08/08/18 12:47 Est GFR (Non-Af Amer) > 60 08/08/18 12:47 Random Glucose 118 mg/dL (65-105) H 08/08/18 12:47 Calcium 9.1 mg/dL (8.4-10.2) 08/08/18 12:47 Total Bilirubin 0.2 mg/dl (0.2-1.3) 08/08/18 12:47 AST 23 U/L (14-36) 08/08/18 12:47 ALT 16 U/L (9-52) 08/08/18 12:47 Alkaline Phosphatase 45 U/L (38-126) 08/08/18 12:47 Troponin I < 0.0120 ng/mL (0.00-0.120) 08/08/18 12:47 Total Protein 7.4 G/DL (6.3-8.2) 08/08/18 12:47 Albumin 4.3 g/dL (3.5-5.0) 08/08/18 12:47 Globulin 3.2 gm/dL (2.2-3.9) 08/08/18 12:47 Albumin/Globulin Ratio 1.4 (1.0-2.1) 08/08/18 12:47 Urine Color Yellow (YELLOW) 08/08/18 12:35 Urine Clarity Cloudy (Clear) 08/08/18 12:35 Urine pH 7.0 (5.0-8.0) 08/08/18 12:35 Ur Specific [place] 1.016 (1.003-1.030) 08/08/18 12:35 Urine Protein Negative mg/dL (NEGATIVE) 08/08/18 12:35 Urine Glucose (UA) Neg mg/dL (NEGATIVE) 08/08/18 12:35 Urine Ketones Negative mg/dL (NEGATIVE) 08/08/18 12:35 Urine Blood Negative (NEGATIVE) 08/08/18 12:35 Urine Nitrate Negative (NEGATIVE) 08/08/18 12:35 Urine Bilirubin Negative (NEGATIVE) 08/08/18 12:35 Urine Urobilinogen 0.2-1.0 mg/dL (0.2-1.0) 08/08/18 12:35 Ur Leukocyte Esterase Neg Michael/uL (Negative) 08/08/18 12:35 Urine RBC (Auto) 1 /hpf (0-3) 08/08/18 12:35 Urine Microscopic WBC 1 /hpf (0-5) 08/08/18 12:35 Ur Squamous Epith Cells 4 /hpf (0-5) 08/08/18 12:35 Amorphous Sediment Moderate /ul (<OCC) H 08/08/18 12:35 Urine Bacteria Rare (<OCC) 08/08/18 12:35 - Hospital Course Hospital Course: 38 yo female with no PMH brought to ER due to episode of syncope with normal CT/ ekg finding. Patient admitted to [facility] for observation. Patient vitals, CBC/ CMP WNL, Echo was done today morning and no acute finding. Patient is clear to be discharge home and follow up with her PCP. Education about vaso-vagal event given to patient No further intervention X-ray negative for acute changes CT CHEST Small elliptical shaped septated collection of gas within the soft tissues anteromedial right lung apex. This probably represents atypical bleb formation. Note that the collection also abuts the right lateral wall of the esophagus however the esophagus appears intact.. The collection also abuts the posterior right lobe of the thyroid gland. Endoscopy followup could be performed if clinically indicated given this patient's history of trauma. No intracranial hemorrhage or mass effect. Left maxillary sinus inflammatory changes as detailed above. IMPRESSION: No intracranial hemorrhage or mass effect. Left maxillary sinus inflammatory changes as detailed above. Discharge Exam - Head Exam Head Exam: ATRAUMATIC, NORMAL INSPECTION, NORMOCEPHALIC - Eye Exam Eye Exam: EOMI, Normal appearance, PERRL Pupil Exam: NORMAL ACCOMODATION, PERRL - Respiratory Exam Respiratory Exam: Clear to PA & Lateral, NORMAL BREATHING PATTERN, UNREMARKABLE - Cardiovascular Exam Cardiovascular Exam: REGULAR RHYTHM, +S1, +S2 - GI/Abdominal Exam GI & Abdominal Exam: Normal Bowel Sounds, Unremarkable - Neurological Exam Neurological exam: Alert, CN II-XII Intact, Normal Gait, Oriented x3, Reflexes Normal - Psychiatric Exam Psychiatric exam: Normal Affect, Normal Mood Discharge Plan - Follow Up Plan Condition: FAIR Disposition: HOME/ ROUTINE Patient education suggested?: Yes Instructions: Syncope (Fainting) (DC) Additional Instructions: follow up with primary MD in 1 week Referrals: [facility] [Outside] <Nils Carmichael - Last Filed: 08/09/18 13:44> Provider - Provider Date of Admission: 08/08/18 13:38 Attending physician: Nils Carmichael MD Hospital Course - Lab Results Lab Results: Most Recent Lab Values WBC 7.3 K/uL (4.8-10.8) 08/08/18 12:47 RBC 4.67 Mil/uL (3.80-5.20) 08/08/18 12:47 Hgb 14.0 g/dL (12.0-16.0) 08/08/18 12:47 Hct 42.1 % (34.0-47.0) 08/08/18 12:47 MCV 90.2 fl (81.0-99.0) 08/08/18 12:47 MCH 30.1 pg (27.0-31.0) 08/08/18 12:47 MCHC 33.3 g/dL (33.0-37.0) 08/08/18 12:47 RDW 13.6 % (11.5-14.5) 08/08/18 12:47 Plt Count 230 K/uL (130-400) 08/08/18 12:47 MPV 8.7 fl (7.2-11.7) 08/08/18 12:47 Neut % (Auto) 76.1 % (50.0-75.0) H 08/08/18 12:47 Lymph % (Auto) 15.9 % (20.0-40.0) L 08/08/18 12:47 [place] % (Auto) 5.3 % (0.0-10.0) 08/08/18 12:47 Eos % (Auto) 2.4 % (0.0-4.0) 08/08/18 12:47 Baso % (Auto) 0.3 % (0.0-2.0) 08/08/18 12:47 Neut # (Auto) 5.5 K/uL (1.8-7.0) 08/08/18 12:47 Lymph # (Auto) 1.2 K/uL (1.0-4.3) 08/08/18 12:47 [place] # (Auto) 0.4 K/uL (0.0-0.8) 08/08/18 12:47 Eos # (Auto) 0.2 K/uL (0.0-0.7) 08/08/18 12:47 Baso # (Auto) 0.0 K/uL (0.0-0.2) 08/08/18 12:47 Sodium 139 mmol/l (132-148) 08/08/18 12:47 Potassium 4.0 MMOL/L (3.6-5.0) 08/08/18 12:47 Chloride 103 mmol/L (98-107) 08/08/18 12:47 Carbon Dioxide 27 mmol/L (22-30) 08/08/18 12:47 Anion Gap 13 (10-20) 08/08/18 12:47 BUN 12 mg/dl (7-17) 08/08/18 12:47 Creatinine 0.6 mg/dl (0.7-1.2) L 08/08/18 12:47 Est GFR ( Amer) > 60 08/08/18 12:47 Est GFR (Non-Af Amer) > 60 08/08/18 12:47 Random Glucose 118 mg/dL (65-105) H 08/08/18 12:47 Calcium 9.1 mg/dL (8.4-10.2) 08/08/18 12:47 Total Bilirubin 0.2 mg/dl (0.2-1.3) 08/08/18 12:47 AST 23 U/L (14-36) 08/08/18 12:47 ALT 16 U/L (9-52) 08/08/18 12:47 Alkaline Phosphatase 45 U/L (38-126) 08/08/18 12:47 Troponin I < 0.0120 ng/mL (0.00-0.120) 08/08/18 12:47 Total Protein 7.4 G/DL (6.3-8.2) 08/08/18 12:47 Albumin 4.3 g/dL (3.5-5.0) 08/08/18 12:47 Globulin 3.2 gm/dL (2.2-3.9) 08/08/18 12:47 Albumin/Globulin Ratio 1.4 (1.0-2.1) 08/08/18 12:47 Urine Color Yellow (YELLOW) 08/08/18 12:35 Urine Clarity Cloudy (Clear) 08/08/18 12:35 Urine pH 7.0 (5.0-8.0) 08/08/18 12:35 Ur Specific [place] 1.016 (1.003-1.030) 08/08/18 12:35 Urine Protein Negative mg/dL (NEGATIVE) 08/08/18 12:35 Urine Glucose (UA) Neg mg/dL (NEGATIVE) 08/08/18 12:35 Urine Ketones Negative mg/dL (NEGATIVE) 08/08/18 12:35 Urine Blood Negative (NEGATIVE) 08/08/18 12:35 Urine Nitrate Negative (NEGATIVE) 08/08/18 12:35 Urine Bilirubin Negative (NEGATIVE) 08/08/18 12:35 Urine Urobilinogen 0.2-1.0 mg/dL (0.2-1.0) 08/08/18 12:35 Ur Leukocyte Esterase Neg Michael/uL (Negative) 08/08/18 12:35 Urine RBC (Auto) 1 /hpf (0-3) 08/08/18 12:35 Urine Microscopic WBC 1 /hpf (0-5) 08/08/18 12:35 Ur Squamous Epith Cells 4 /hpf (0-5) 08/08/18 12:35 Amorphous Sediment Moderate /ul (<OCC) H 08/08/18 12:35 Urine Bacteria Rare (<OCC) 08/08/18 12:35 Attending/Attestation - Attestation I have personally seen and examined this patient.: Yes I have fully participated in the care of the patient.: Yes I have reviewed all pertinent clinical information, including history, physical exam and plan: Yes Notes (Text): 08/09/18 13:43 Patient seen and examined with resident. Case discussed and agreed with assessment. Patient discharged in stable condition.
[2018-08-12 20:46] VITALS: O2SAT 98
== END 2018-08-09 11:50 | disposition home or self-care (01) ==
LOC: H.ER 10:28 → H.ERHOLD 13:38 → H.TEL 16:06
DX: R55 Syncope and collapse (principal); R51 Headache
CPT/HCPCS: 70450; 71045; 72125; 80053; 81003; 81025; 84484; 85025; 93005; 93306; 99284; G0378